=== PATIENT | male | born 1965 | race Caucasian/White ===

== ENCOUNTER 2017-05-29 15:39 | Inpatient (IN) | payer MEDICARE ==
[~2017-05-29] VITALS: Ht 175.3 cm; Wt 65.3 kg
[~2017-05-29 15:39] MED LIST: ACET-1757 PO; AMPI3VIA30 IV; AMPI500C2 PO; BISA10SU2 PR; DIAZ5TAB PO; DOCU100T3 PO; ENOX40SY4 SQ; MORP10SO BC; MORP5VIA IVPush; ONDA4TAB12 PO; POLY17PO5 PO; TRAM-47 PO
[2017-05-29 16:25] LABS: HEMOGLOBIN 12.5 g/dL (13.7-18.0); WHITE BLOOD COUNT 16.7 x10^3/uL (3.4-10)
[2017-05-29 16:34] LABS: BLOOD UREA NITROGEN 9 mg/dL (7-18)
[2017-05-29] MEDS ORDERED: ONDANSETRON 2MG/ML, 2ML ONE (16:57)
[2017-05-29] MEDS ORDERED: MORPHINE SULFATE 4 MG/ML, 1ML ONE (16:57)
[2017-05-29] MEDS ORDERED: MORPHINE SULFATE 4 MG/ML, 1ML IVPush PRN (17:00)
[2017-05-29] MEDS ORDERED: VANCOMYCIN PER PHARMACY MC PRN ×2 (17:00→19:30)
[2017-05-29] MEDS ORDERED: SODIUM CHLORIDE 0.9% 1,000ML IVBOLUS ONE (17:00)
[2017-05-29] MEDS ORDERED: ONDANSETRON 2MG/ML, 2ML IVPush ONE (17:00)
[2017-05-29] MEDS ORDERED: SODIUM CHLORIDE FLUSH 10ML SYR IVF ONE (17:00)
[2017-05-29] MEDS ORDERED: VANCOMYCIN 1,200 MG in SODIUM CHLORIDE 0.9% 250 ML IV ONE (17:30)
[2017-05-29] MEDS ORDERED: OMNIPAQUE 350 MG/ML, 100ML BOTTLE ONE (17:54)
[2017-05-29] MEDS ORDERED: ACETAMINOPHEN 325 MG TABLET PO PRN (19:30)
[2017-05-29] MEDS ORDERED: POLYETHYLENE GLYCOL 17 GM PACKET PO PRN (19:30)
[2017-05-29] MEDS ORDERED: PROMETHAZINE 25 MG/ML, 1ML IM PRN (19:30)
[2017-05-29] MEDS ORDERED: BISACODYL 10 MG SUPP PR PRN (19:30)
[2017-05-29] MEDS ORDERED: DOCUSATE 100 MG CAPSULE PO PRN (19:30)
[2017-05-29] MEDS ORDERED: ONDANSETRON 2MG/ML, 2ML IVPush PRN (19:30)
[2017-05-29] MEDS: SODIUM CHLORIDE 0.9% 1,000 ML IV SCH (21:15)
[2017-05-29] MEDS ORDERED: PHARMACOKINETIC CONSULTATION MC ONE (22:00)
[2017-05-29] MEDS ORDERED: PHARMACOKINETIC MONITORING MC PRN (22:00)
[2017-05-29] MEDS: PIPERACILLIN/TAZO/PMX 3.375GM 50 ML IV SCH (22:07)
[2017-05-29] MEDS: POTASSIUM CHLORIDE 20 MEQ TAB.ER.PRT PO SCH (22:08)
[2017-05-29] MEDS: ENOXAPARIN 40 MG/0.4 ML SQ SCH (22:08)
[2017-05-29] MEDS: morphine SULFATE 10 MG/ML, 1ML IVPush PRN (22:28)
[2017-05-29 23:54] VITALS: BP 114/70
[2017-05-30] MEDS: morphine SULFATE 10 MG/ML, 1ML IVPush PRN ×5 (03:36→21:32)
[2017-05-30] MEDS: PIPERACILLIN/TAZO/PMX 3.375GM 50 ML IV SCH ×4 (04:27→21:31)
[2017-05-30] MEDS: SODIUM CHLORIDE 0.9% 1,000 ML IV SCH ×3 (04:27→23:37)
[2017-05-30 04:52] VITALS: BP 96/58
[2017-05-30 05:47] LABS: HEMATOCRIT 30.1 % (39.2-51.8); WHITE BLOOD COUNT 9.8 x10^3/uL (3.4-10)
[2017-05-30 05:59] LABS: BLOOD UREA NITROGEN 8 mg/dL (7-18)
[2017-05-30] MEDS: VANCOMYCIN 1,300 MG in SODIUM CHLORIDE 0.9% 250 ML IV SCH ×2 (06:09→17:47)
[2017-05-30 06:13] LABS: ASPARTATE AMINO TRANSFERASE 10 U/L (15-37)
[2017-05-30 08:04] VITALS: BP 102/65
[2017-05-30] MEDS: POTASSIUM CHLORIDE 20 MEQ TAB.ER.PRT PO SCH ×2 (08:24→16:54)
[2017-05-30] MEDS: SENNA/DOCUSATE TABLET PO SCH (08:25)
[2017-05-30 18:06] VITALS: BP 151/79
[2017-05-30 19:56] VITALS: BP 118/80
[2017-05-30] MEDS: ENOXAPARIN 40 MG/0.4 ML SQ SCH (21:32)
[2017-05-31 01:51] VITALS: BP 104/67
[2017-05-31] MEDS: PIPERACILLIN/TAZO/PMX 3.375GM 50 ML IV SCH ×2 (04:03→09:55)
[2017-05-31] MEDS: VANCOMYCIN 1,300 MG in SODIUM CHLORIDE 0.9% 250 ML IV SCH (06:07)
[2017-05-31] MEDS: SODIUM CHLORIDE 0.9% 1,000 ML IV SCH ×2 (06:08→12:44)
[2017-05-31] MEDS: morphine SULFATE 10 MG/ML, 1ML IVPush PRN ×4 (06:08→23:51)
[2017-05-31 08:21] VITALS: BP 134/76
[2017-05-31] MEDS: SENNA/DOCUSATE TABLET PO SCH (09:00)
[2017-05-31] MEDS ORDERED: HYDROmorphone 1 MG/ML, 1ML IV PRN ×2 (11:30→13:00)
[2017-05-31] MEDS: CEFTAROLINE 600 MG in SODIUM CHLORIDE 0.9% 100 ML IV SCH (14:29)
[2017-05-31] MEDS: metroNIDAZOLE 500 MG TABLET PO SCH ×2 (15:40→22:40)
[2017-05-31 15:49] VITALS: BP 122/71
[2017-05-31 18:37] VITALS: BP 155/84
[2017-05-31] MEDS: ENOXAPARIN 40 MG/0.4 ML SQ SCH (22:40)
[2017-06-01] MEDS: CEFTAROLINE 600 MG in SODIUM CHLORIDE 0.9% 100 ML IV SCH (02:26)
[2017-06-01 04:25] VITALS: BP 108/65
[2017-06-01] MEDS: morphine SULFATE 10 MG/ML, 1ML IVPush PRN ×2 (07:12→12:45)
[2017-06-01] MEDS: metroNIDAZOLE 500 MG TABLET PO SCH (07:47)
[2017-06-01] MEDS: SENNA/DOCUSATE TABLET PO SCH (07:47)
[2017-06-01 08:02] VITALS: BP 105/52
[2017-06-01] MEDS ORDERED: ENOX40SY4 SQ (11:10)
[2017-06-01] MEDS ORDERED: METR500T PO (11:10)
[2017-06-01] MEDS ORDERED: MORP10VI10 IVPush (11:10)
[2017-06-01] MEDS ORDERED: CEFTAROLINE 600 MG in SODIUM CHLORIDE 0.9% 100 ML IV SCH (18:30)
== END 2017-06-01 15:22 | DRG 871 ==
LOC: ED 18:56 → SUATTDRO 19:05 → EDIP 19:15 → 3NE 19:30
PROVIDERS: ADMIT Internal Medicine; ATTEND Family Medicine
DX: A41.9 Sepsis, unspecified organism (principal); E43 Unspecified severe protein-calorie malnutrition; G82.22 Paraplegia, incomplete; K59.2 Neurogenic bowel, not elsewhere classified; M86.151 Other acute osteomyelitis, right femur; E87.1 Hypo-osmolality and hyponatremia; E46 Unspecified protein-calorie malnutrition; M86.651 Other chronic osteomyelitis, right thigh; L02.31 Cutaneous abscess of buttock; N39.0 Urinary tract infection, site not specified; G90.4 Autonomic dysreflexia; N31.9 Neuromuscular dysfunction of bladder, unspecified; D63.8 Anemia in other chronic diseases classified elsewhere; D75.89 Other specified diseases of blood and blood-forming organs; Z68.21 Body mass index [BMI] 21.0-21.9, adult; E87.6 Hypokalemia; F12.90 Cannabis use, unspecified, uncomplicated; F17.210 Nicotine dependence, cigarettes, uncomplicated; Z16.24 Resistance to multiple antibiotics; Z83.3 Family history of diabetes mellitus; Z86.14 Personal history of Methicillin resistant Staphylococcus aureus infection; D47.3 Essential (hemorrhagic) thrombocythemia
CPT/HCPCS: 36415; 72193; 80048; 80053; 82040; 83605; 83735; 84100; 85025; 87040; 87070; 87077; 87147; 87186; 87205; 96361; 96365; 96375; J0712; J1170; J1650; J2405; J2543; J3370; Q9967; J2270; J7030; J7050

== ENCOUNTER 2017-07-30 10:38 | Inpatient (IN) | payer MEDICARE ==
[~2017-07-30] VITALS: Ht 175.3 cm; Wt 66.5 kg
[~2017-07-30 10:38] MED LIST changes: +METR500T PO; +MORP10VI10 IVPush
[2017-07-30] MEDS ORDERED: SODIUM CHLORIDE 0.9% 1,000ML IVBOLUS ONE ×2 (11:00)
[2017-07-30] MEDS ORDERED: VANCOMYCIN 1,300 MG in SODIUM CHLORIDE 0.9% 250 ML IV ONE (11:00)
[2017-07-30] MEDS ORDERED: SODIUM CHLORIDE FLUSH 10ML SYR IVF ONE (11:00)
[2017-07-30] MEDS ORDERED: VANCOMYCIN PER PHARMACY MC ONE (11:00)
[2017-07-30] MEDS ORDERED: PIPERACILLIN/TAZO/PMX 3.375GM 50 ML IV ONE (11:00)
[2017-07-30] MEDS ORDERED: ACETAMINOPHEN 500 MG TABLET PO ONE (11:00)
[2017-07-30 11:21] LABS: WHITE BLOOD COUNT 20.7 x10^3/uL (3.4-10)
[2017-07-30] MEDS ORDERED: ACETAMINOPHEN 325 MG TABLET ONE (11:21)
[2017-07-30] MEDS ORDERED: PIPERACILLIN/TAZO/PMX 3.375GM 50 ML ONE (11:21)
[2017-07-30 11:30] LABS: ASPARTATE AMINO TRANSFERASE 6 U/L (15-37); BLOOD UREA NITROGEN 22 mg/dL (7-18)
[2017-07-30] MEDS ORDERED: ONDANSETRON 2MG/ML, 2ML IVPush ONE (11:30)
[2017-07-30] MEDS ORDERED: HYDROmorphone 1 MG/ML, 1ML ONE ×2 (11:35→12:01)
[2017-07-30] MEDS ORDERED: ONDANSETRON 2MG/ML, 2ML ONE (11:35)
[2017-07-30] MEDS: HYDROmorphone 1 MG/ML, 1ML IVPush PRN ×2 (11:39→12:03)
[2017-07-30] MEDS ORDERED: ACETAMINOPHEN 500 MG TABLET ONE (11:52)
[2017-07-30 12:31] LABS: DIFF TOTAL CELLS COUNTED 100 CELL DIFF
[2017-07-30 12:33] LABS: VERIFY COUNTS? YES
[2017-07-30] MEDS ORDERED: POLYETHYLENE GLYCOL 17 GM PACKET PO PRN (13:00)
[2017-07-30] MEDS ORDERED: ENALAPRILAT 1.25 MG/ML, 2ML IVPush PRN (13:00)
[2017-07-30] MEDS ORDERED: VANCOMYCIN PER PHARMACY MC PRN (13:00)
[2017-07-30] MEDS ORDERED: BISACODYL 10 MG SUPP PR PRN (13:00)
[2017-07-30] MEDS: SENNA/DOCUSATE TABLET PO SCH (13:00)
[2017-07-30] MEDS ORDERED: hydrALAzine 20 MG/ML, 1ML IVPush PRN (13:00)
[2017-07-30] MEDS: SODIUM CHLORIDE 0.9% 1,000 ML IV SCH (13:16)
[2017-07-30] MEDS: HEPARIN 5,000 UNITS/ML, 1ML SQ SCH (13:16)
[2017-07-30 13:19] VITALS: BP 120/93
[2017-07-30] MEDS ORDERED: PHARMACOKINETIC MONITORING MC PRN (13:30)
[2017-07-30] MEDS: morphine SULFATE 10 MG/ML, 1ML IVPush PRN ×2 (14:04→18:06)
[2017-07-30 15:17] VITALS: BP 152/88
[2017-07-30] MEDS: PIPERACILLIN/TAZO/PMX 3.375GM 50 ML IV SCH (18:06)
[2017-07-30] MEDS: ACETAMINOPHEN 325 MG TABLET PO PRN (18:08)
[2017-07-30 20:00] VITALS: BP 93/53
[2017-07-31] MEDS: SODIUM CHLORIDE 0.9% 1,000 ML IV SCH ×2 (01:18→04:42)
[2017-07-31] MEDS: morphine SULFATE 10 MG/ML, 1ML IVPush PRN (01:18)
[2017-07-31] MEDS: HEPARIN 5,000 UNITS/ML, 1ML SQ SCH ×3 (01:18→18:12)
[2017-07-31] MEDS: PIPERACILLIN/TAZO/PMX 3.375GM 50 ML IV SCH ×4 (01:18→18:11)
[2017-07-31 01:21] VITALS: BP 120/75
[2017-07-31] MEDS: ACETAMINOPHEN 325 MG TABLET PO PRN ×3 (01:29→12:18)
[2017-07-31 02:00] VITALS: BP 125/73
[2017-07-31 05:37] LABS: BLOOD UREA NITROGEN 13 mg/dL (7-18)
[2017-07-31 05:40] LABS: ASPARTATE AMINO TRANSFERASE 11 U/L (15-37)
[2017-07-31 05:42] LABS: HEMATOCRIT 36.6 % (39.2-51.8); HEMOGLOBIN 12.4 g/dL (13.7-18.0)
[2017-07-31] MEDS ORDERED: VANCOMYCIN 1,300 MG in SODIUM CHLORIDE 0.9% 250 ML IV SCH (07:30)
[2017-07-31 07:55] VITALS: BP 93/56
[2017-07-31] MEDS: SENNA/DOCUSATE TABLET PO SCH (08:24)
[2017-07-31] MEDS ORDERED: MORP1VIA2 IVPush (09:52)
[2017-07-31 15:00] VITALS: BP 120/60
[2017-07-31 19:10] VITALS: BP 115/77
[2017-07-31] MEDS: VANCOMYCIN 1,400 MG in SODIUM CHLORIDE 0.9% 250 ML IV SCH (19:56)
[2017-07-31] MEDS: ONDANSETRON 2MG/ML, 2ML IVPush PRN (20:08)
[2017-08-01] MEDS: HEPARIN 5,000 UNITS/ML, 1ML SQ SCH ×3 (01:00→18:50)
[2017-08-01 01:29] VITALS: BP 138/94
[2017-08-01] MEDS: PIPERACILLIN/TAZO/PMX 3.375GM 50 ML IV SCH ×4 (01:29→19:51)
[2017-08-01] MEDS: ONDANSETRON 2MG/ML, 2ML IVPush PRN ×2 (04:58→10:48)
[2017-08-01] MEDS: ACETAMINOPHEN 325 MG TABLET PO PRN ×3 (05:05→18:49)
[2017-08-01] MEDS: VANCOMYCIN 1,400 MG in SODIUM CHLORIDE 0.9% 250 ML IV SCH ×2 (08:21→21:14)
[2017-08-01 08:25] VITALS: BP 134/87
[2017-08-01] MEDS: SENNA/DOCUSATE TABLET PO SCH (10:49)
[2017-08-01 15:31] VITALS: BP 116/71
[2017-08-01 19:31] VITALS: BP 110/75
[2017-08-01] MEDS: OXYcodone IR 5MG TABLET PO PRN (20:05)
[2017-08-01] MEDS: PHENAZOPYRIDINE 100 MG TABLET PO SCH (21:00)
[2017-08-02] MEDS: PIPERACILLIN/TAZO/PMX 3.375GM 50 ML IV SCH ×4 (01:30→19:25)
[2017-08-02 01:48] VITALS: BP 150/97
[2017-08-02] MEDS: HEPARIN 5,000 UNITS/ML, 1ML SQ SCH ×3 (03:46→19:25)
[2017-08-02] MEDS: OXYcodone IR 5MG TABLET PO PRN ×3 (04:00→18:10)
[2017-08-02 08:24] VITALS: BP 124/79
[2017-08-02] MEDS: PHENAZOPYRIDINE 100 MG TABLET PO SCH ×3 (09:00→20:57)
[2017-08-02] MEDS: SENNA/DOCUSATE TABLET PO SCH (09:05)
[2017-08-02] MEDS: VANCOMYCIN 1,400 MG in SODIUM CHLORIDE 0.9% 250 ML IV SCH ×2 (10:23→20:57)
[2017-08-02 13:45] VITALS: BP 130/84
[2017-08-02 19:52] VITALS: BP 128/71
[2017-08-03] MEDS: PIPERACILLIN/TAZO/PMX 3.375GM 50 ML IV SCH ×4 (01:06→19:22)
[2017-08-03 02:37] VITALS: BP 146/85
[2017-08-03] MEDS: HEPARIN 5,000 UNITS/ML, 1ML SQ SCH ×3 (03:00→19:22)
[2017-08-03] MEDS: PHENAZOPYRIDINE 100 MG TABLET PO SCH ×3 (09:00→21:00)
[2017-08-03] MEDS: SENNA/DOCUSATE TABLET PO SCH (09:00)
[2017-08-03] MEDS: VANCOMYCIN 1,400 MG in SODIUM CHLORIDE 0.9% 250 ML IV SCH ×2 (09:36→20:56)
[2017-08-03] MEDS: OXYcodone IR 5MG TABLET PO PRN ×2 (09:36→21:44)
[2017-08-03 09:40] VITALS: BP 119/74
[2017-08-03 13:54] VITALS: BP 98/66
[2017-08-03 19:33] VITALS: BP 112/67
[2017-08-04 01:05] VITALS: BP 96/54
[2017-08-04] MEDS: PIPERACILLIN/TAZO/PMX 3.375GM 50 ML IV SCH ×4 (01:15→19:53)
[2017-08-04 01:25] VITALS: BP 114/70
[2017-08-04] MEDS: HEPARIN 5,000 UNITS/ML, 1ML SQ SCH ×3 (03:00→19:57)
[2017-08-04 08:45] VITALS: BP 107/63
[2017-08-04] MEDS: PHENAZOPYRIDINE 100 MG TABLET PO SCH ×3 (09:12→19:57)
[2017-08-04] MEDS: VANCOMYCIN 1,400 MG in SODIUM CHLORIDE 0.9% 250 ML IV SCH (09:12)
[2017-08-04] MEDS: SENNA/DOCUSATE TABLET PO SCH (09:13)
[2017-08-04] MEDS: OXYcodone IR 5MG TABLET PO PRN ×2 (11:23→19:55)
[2017-08-04 14:00] VITALS: BP 117/72
[2017-08-04 18:57] VITALS: BP 163/90
[2017-08-04] MEDS ORDERED: VANCOMYCIN 1,400 MG in SODIUM CHLORIDE 0.9% 250 ML IV SCH (21:00)
[2017-08-05] MEDS: PIPERACILLIN/TAZO/PMX 3.375GM 50 ML IV SCH ×2 (01:22→07:49)
[2017-08-05 01:58] VITALS: BP 104/69
[2017-08-05] MEDS: HEPARIN 5,000 UNITS/ML, 1ML SQ SCH ×2 (03:00→11:00)
[2017-08-05] MEDS: SENNA/DOCUSATE TABLET PO SCH (07:49)
[2017-08-05] MEDS: PHENAZOPYRIDINE 100 MG TABLET PO SCH ×2 (07:49→07:52)
[2017-08-05 08:03] VITALS: BP 113/72
[2017-08-05] MEDS ORDERED: SENN1TAB7 PO (10:00)
[2017-08-05] MEDS ORDERED: SULF1TAB24 PO (10:00)
[2017-08-05] MEDS ORDERED: BISA10SU65 PR (10:00)
[2017-08-05] MEDS ORDERED: LEVO750T26 PO (10:00)
[2017-08-05] MEDS ORDERED: OXYC5TAB3 PO (10:00)
[2017-08-05] MEDS ORDERED: CEPH-367 PO ×2 (10:12→10:16)
== END 2017-08-05 11:35 | disposition home or self-care (01) | DRG 871 ==
LOC: ED 11:30 → EDIP 11:39 → ED 12:09 → 3NE 12:40
PROVIDERS: ADMIT Hospitalist; ATTEND Hospitalist
PROC: 0T9B70Z Drainage of Bladder with Drainage Device, Via Natural or Artificial Opening (ICD-10-PCS; principal; 2017-07-30)
DX: A41.50 Gram-negative sepsis, unspecified (principal); E43 Unspecified severe protein-calorie malnutrition; G82.20 Paraplegia, unspecified; K59.2 Neurogenic bowel, not elsewhere classified; N31.9 Neuromuscular dysfunction of bladder, unspecified; S31.000A Unspecified open wound of lower back and pelvis without penetration into retroperitoneum, initial encounter; M86.651 Other chronic osteomyelitis, right thigh; N39.0 Urinary tract infection, site not specified; D63.8 Anemia in other chronic diseases classified elsewhere; G89.29 Other chronic pain; Z16.24 Resistance to multiple antibiotics; Z79.2 Long term (current) use of antibiotics; Z86.14 Personal history of Methicillin resistant Staphylococcus aureus infection
CPT/HCPCS: 36415; 71010; 80053; 80061; 80202; 81001; 82565; 83036; 83605; 83735; 84439; 84443; 85025; 87040; 87070; 87077; 87086; 87147; 87186; 87205; J1170; J1644; J2405; J2543; J3370; J2270; J7030; J7050

== ENCOUNTER → 2017-09-13 | Outpatient (CLI) | payer MEDICARE ==
[~2017-09-13] MED LIST changes: +BISA10SU65 PR; +CEPH-367 PO; +LEVO750T26 PO; +MORP1VIA2 IVPush; +OXYC5TAB3 PO; +SENN1TAB7 PO; +SULF1TAB24 PO
== END | disposition home or self-care (01) ==
LOC: WOUND 08:50
PROVIDERS: ATTEND Internal Medicine
DX: L89.44 Pressure ulcer of contiguous site of back, buttock and hip, stage 4 (principal); G82.21 Paraplegia, complete; G89.29 Other chronic pain; M86.651 Other chronic osteomyelitis, right thigh; F17.210 Nicotine dependence, cigarettes, uncomplicated; Z86.14 Personal history of Methicillin resistant Staphylococcus aureus infection
CPT/HCPCS: 97597; G0463; WOU0463

== ENCOUNTER → 2017-09-27 | Outpatient (CLI) | payer MEDICARE | END | disposition home or self-care (01) | LOC: WOUND 11:15 | PROVIDERS: ATTEND Internal Medicine | DX: L89.44 Pressure ulcer of contiguous site of back, buttock and hip, stage 4 (principal); G82.21 Paraplegia, complete; M86.651 Other chronic osteomyelitis, right thigh; G89.29 Other chronic pain; F17.210 Nicotine dependence, cigarettes, uncomplicated; Z86.14 Personal history of Methicillin resistant Staphylococcus aureus infection | CPT/HCPCS: 11042; 97605 ==

== ENCOUNTER → 2017-10-06 | Outpatient (CLI) | payer MEDICARE | END | disposition home or self-care (01) | LOC: WOUND 11:17 | PROVIDERS: ATTEND Family Medicine | DX: L89.44 Pressure ulcer of contiguous site of back, buttock and hip, stage 4 (principal); G82.21 Paraplegia, complete; G89.29 Other chronic pain; M86.651 Other chronic osteomyelitis, right thigh; F17.210 Nicotine dependence, cigarettes, uncomplicated | CPT/HCPCS: 97605 ==

== ENCOUNTER → 2017-10-13 | Outpatient (CLI) | payer MEDICARE | END | disposition home or self-care (01) | LOC: WOUND 13:26 | PROVIDERS: ATTEND Family Medicine | DX: L89.44 Pressure ulcer of contiguous site of back, buttock and hip, stage 4 (principal); G82.21 Paraplegia, complete; M86.651 Other chronic osteomyelitis, right thigh; G89.29 Other chronic pain; F17.210 Nicotine dependence, cigarettes, uncomplicated | CPT/HCPCS: 11043; 97605 ==

== ENCOUNTER → 2017-10-27 | Outpatient (CLI) | payer MEDICARE | END | disposition home or self-care (01) | LOC: WOUND 11:17 | PROVIDERS: ATTEND Family Medicine | DX: L89.44 Pressure ulcer of contiguous site of back, buttock and hip, stage 4 (principal); G82.21 Paraplegia, complete; F17.210 Nicotine dependence, cigarettes, uncomplicated; M86.651 Other chronic osteomyelitis, right thigh; G89.29 Other chronic pain | CPT/HCPCS: 97605 ==

== ENCOUNTER → 2017-11-10 | Outpatient (CLI) | payer MEDICARE | END | disposition home or self-care (01) | LOC: WOUND 10:55 | PROVIDERS: ATTEND Family Medicine | DX: L89.44 Pressure ulcer of contiguous site of back, buttock and hip, stage 4 (principal); G82.21 Paraplegia, complete; M86.651 Other chronic osteomyelitis, right thigh; G82.20 Paraplegia, unspecified; G89.29 Other chronic pain; F17.210 Nicotine dependence, cigarettes, uncomplicated | CPT/HCPCS: 97605 ==

== ENCOUNTER → 2017-11-17 | Outpatient (CLI) | payer MEDICARE | END | disposition home or self-care (01) | LOC: WOUND 11:06 | PROVIDERS: ATTEND Family Medicine | DX: L89.44 Pressure ulcer of contiguous site of back, buttock and hip, stage 4 (principal); G82.21 Paraplegia, complete; M86.651 Other chronic osteomyelitis, right thigh; G89.29 Other chronic pain; F17.210 Nicotine dependence, cigarettes, uncomplicated | CPT/HCPCS: 97597 ==